=== PATIENT | male | born 1985 | race Caucasian/White ===

== ENCOUNTER 2017-08-24 06:44 | Emergency (ER) | payer OTHER | END 2017-08-24 07:27 | disposition home or self-care (01) | LOC: ER 07:27 | DX: H10.89 Other conjunctivitis (principal); B96.89 Other specified bacterial agents as the cause of diseases classified elsewhere | CPT/HCPCS: 99283 ==

== ENCOUNTER → 2019-11-12 | Outpatient (CLI) | payer OTHER ==
[2017-08-24 07:06] VITALS: BP 142/85
[~2019-11-12] MED LIST: TOBR5DRO6 OS
== END | disposition home or self-care (01) ==
LOC: LAB 12:07
PROVIDERS: ATTEND Internal Medicine Pulmonary Disease
DX: U07.1 COVID-19 (principal)
CPT/HCPCS: C9803; U0003

== ENCOUNTER → 2021-04-10 | Outpatient (CLI) | payer OTHER ==
[2017-08-24 07:06] VITALS: BP 142/85
== END ==
LOC: LAB 07:39
PROVIDERS: ATTEND Internal Medicine Pulmonary Disease
DX: Z20.822 Contact with and (suspected) exposure to COVID-19 (principal)
CPT/HCPCS: U0003; U0005

== ENCOUNTER → 2021-04-16 | Outpatient (CLI) | payer OTHER ==
[2017-08-24 07:06] VITALS: BP 142/85
== END ==
LOC: LAB 10:08
PROVIDERS: ATTEND Internal Medicine Pulmonary Disease
DX: Z20.822 Contact with and (suspected) exposure to COVID-19 (principal)
CPT/HCPCS: U0003; U0005